=== PATIENT | female | born 1985 | race African-American/Black ===

== ENCOUNTER 2017-02-09 13:03 | Emergency (ER) | payer OTHER ==
--- NOTE | ~2017-02-09 | CR170 ---
[facility]. [facility] A Service of [facility] & [facility] RADIOLOGY TEXT RESULTS PATIENT: TIO WILLIS LOCATION: SED : 83 UNIT #: [id number] AGE: [address]: Jesus Villa MD SEX: F ORDER DR: [id number] [address] [address] [id number] E MR#: [id number] Acc #: [id number] NAME: TIO WILLIS : 1985 SEX: F STUDY DATE/TIME: 02/09/2017 14:48 UNIT: SED ROOM: STUDY DESCRIPTION: CR Knee 2 Views Rt Attending Physician: Jesus Villa M.D. Ordering Physician: Jesus Villa M.D. MEDICAL IMAGING REPORT This report is preliminary unless electronic signature is present. EXAM Right knee, 2 views. HISTORY Status post reduction of ankle fracture. FINDINGS 2 views are obtained. Bony elements are intact. No fractures are seen. No subluxation is identified. CONCLUSION Negative knee. Dictated by... Rodriguez Castro M.D. THIS IS AN ELECTRONICALLY VERIFIED REPORT Rodriguez Castro M.D. at 02/12/2017 2:44 PM RISHI/avelino TD: 02/09/2017 16:47 JOB #: [id number] MEDICAL IMAGING REPORT Page 1 of 1
--- NOTE | ~2017-02-09 | CR127 ---
[facility] A Service of [facility] & [facility] RADIOLOGY TEXT RESULTS PATIENT: TIO WILLIS LOCATION: SED : 83 UNIT #: [id number] AGE: [address]: Odessa Alvares APRN SEX: F ORDER DR: [id number] [address] [address] [id number] E MR#: [id number] Acc #: [id number] NAME: TIO WILLIS : 1985 SEX: F STUDY DATE/TIME: 02/09/2017 12:22 UNIT: SED ROOM: STUDY DESCRIPTION: CR Foot Complete Min 3 View Rt Attending Physician: Odessa Alvares A.P.R.N. Ordering Physician: Odessa Coyle A.P.R.N. MEDICAL IMAGING REPORT This report is preliminary unless electronic signature is present. EXAM Right foot 3 views, 02/09/2017 12:22 hours HISTORY 31-year-old woman fell while skating today with pain and swelling at the ankle with deformity. Foot pain. COMPARISON Ankle film today. FINDINGS AP, lateral and oblique views demonstrate no acute foot fracture or dislocation. Comminuted fracture dislocation of the ankle again noted. IMPRESSION 1. No acute foot fracture. 2. Comminuted fracture dislocation at the ankle is noted. Orthopedic consultation recommended. Dictated by... Goldie Bobby M.D. THIS IS AN ELECTRONICALLY VERIFIED REPORT Goldie Bobby M.D. at 02/09/2017 1:56 PM Cheryl TD: 02/09/2017 13:16 JOB #: [id number] MEDICAL IMAGING REPORT Page 1 of 1
--- NOTE | ~2017-02-09 | CR21 ---
[facility] A Service of [facility] & [facility] RADIOLOGY TEXT RESULTS PATIENT: TIO WILLIS LOCATION: SED : 83 UNIT #: [id number] AGE: [address]: Odessa Alvares APRN SEX: F ORDER DR: [id number] [address] [address] [id number] E MR#: [id number] Acc #: [id number] NAME: TIO WILLIS : 1985 SEX: F STUDY DATE/TIME: 02/09/2017 12:22 UNIT: SED ROOM: STUDY DESCRIPTION: CR Ankle Min 3 Views Rt Attending Physician: Odessa Alvares A.P.R.N. Ordering Physician: Odessa Coyle A.P.R.N. MEDICAL IMAGING REPORT This report is preliminary unless electronic signature is present. EXAM Right ankle 3 views 02/09/2017 1222 hours HISTORY Patient fell skating today, ankle pain and deformity. COMPARISON None. FINDINGS AP, lateral and oblique views demonstrate an acute fracture dislocation at the ankle. There is an oblique fracture of the distal fibula which spirals through the distal fibula terminating at the level of the tibiotalar articulation. The distal tip of the fibula remains articulated with the lateral talus. There is however medial displacement of the tibia by at least 1.24 cm. There is a transverse fracture of the medial malleolus through the level of the tibiotalar articulation with the distal fragment remaining articulated with the medial margin of the talus. The shaft of the tibia is displaced 1.6 cm medial to the medial margin of the distal medial malleolar fragment. There are small fragments seen at both the fibular and tibia fracture site. On the lateral view, the talus is displaced posterior to the articular surface of the tibia. A small posterior tibial fracture may be present. IMPRESSION There is a complex comminuted fracture of the ankle with a spiral comminuted fracture of the distal fibula and a transverse mildly comminuted fracture of the medial malleolus. There is disruption of the ankle mortise with tibia displaced medial to the talus and anterior to the talus. A small posterior tibial fracture may be present. This is an unstable fracture dislocation. Surgical consultation recommended. [facility] A Service of [facility] RADIOLOGY TEXT RESULTS PATIENT: TIO WILLIS LOCATION: [facility] : 83 UNIT #: [id number] AGE: [address]: Odessa Alvares APRN SEX: F ORDER DR: Dictated by... Goldie Bobby M.D. THIS IS AN ELECTRONICALLY VERIFIED REPORT Goldie Bobby M.D. at 02/09/2017 1:56 PM NONA/jevon TD: 02/09/2017 13:16 JOB #: [id number] MEDICAL IMAGING REPORT Page 1 of 1
--- NOTE | ~2017-02-09 | CR18 ---
[facility] A Service [facility] RADIOLOGY TEXT RESULTS PATIENT: TIO WILLIS LOCATION: SED : 83 UNIT #: [id number] AGE: [address]: Jesus Villa MD SEX: F ORDER DR: [id number] [address] [address] [id number] E MR#: [id number] Acc #: [id number] NAME: TIO WILLIS : 1985 SEX: F STUDY DATE/TIME: 02/09/2017 14:35 UNIT: SED ROOM: STUDY DESCRIPTION: CR Ankle 2 Views Rt Attending Physician: Jesus Villa M.D. Ordering Physician: Jesus Villa M.D. MEDICAL IMAGING REPORT This report is preliminary unless electronic signature is present. EXAM Right ankle, 2 views. HISTORY 31-year-old female with a history of complex fracture dislocation, status post reduction. COMPARISON STUDIES Comparison with earlier today. FINDINGS Postreduction radiograph demonstrates much improved anatomic alignment. There is still some minimal lateral subluxation of the talus upon the tibia. Multiple fractures are again noted. There is also a minimal amount of widening of the anterior portion of the ankle joint between the tibia and the talus. IMPRESSION Postreduction radiograph performed. Complex multiple fractures again noted, but the alignment is much improved and is nearly anatomic. Dictated by... Samuel Castle M.D. THIS IS AN ELECTRONICALLY VERIFIED REPORT Samuel Castle M.D. at 02/09/2017 5:03 PM SAGRARIO/avelino TD: 02/09/2017 16:38 [facility] A Service [facility] RADIOLOGY TEXT RESULTS PATIENT: TIO WILLIS LOCATION: SED : 83 UNIT #: [id number] AGE: [address]: Jesus Villa MD SEX: F ORDER DR: JOB #: [id number] MEDICAL IMAGING REPORT Page 1 of 1
[~2017-02-09 13:03] MED LIST: NORCO1 TAB 10/3; NORVASC; PRENATAL MULITV1 TAB; TOPROL XL
[2017-02-13] MEDS ORDERED: AMLODIPINE BESYL5 MG PO (15:57)
[2017-02-13] MEDS ORDERED: LOPRESSOR PO (15:57)
[2017-02-13] MEDS ORDERED: HYDROCODONE-APA1 T55 PO (15:58)
[2017-02-13] MEDS ORDERED: PERCOCET10 PO (15:58)
== END 2017-02-09 16:35 | disposition home or self-care (01) ==
LOC: SED 13:03
DX: S82.831A Other fracture of upper and lower end of right fibula, initial encounter for closed fracture (principal); S82.51XA Displaced fracture of medial malleolus of right tibia, initial encounter for closed fracture; I10 Essential (primary) hypertension; W19.XXXA Unspecified fall, initial encounter
CPT/HCPCS: 27808; 73560; 73600; 73610; 73630; 96361; 96374; 96375; 99284; 99291; J1170; J2250; J2405

== ENCOUNTER → 2017-02-13 | Day surgery (SDC) | payer OTHER ==
[~2017-02-13] MED LIST changes: +AMLODIPINE BESYL5 MG PO; +HYDROCODONE-APA1 T55 PO; +LOPRESSOR PO; +PERCOCET 5-3251 TAB PO; +PERCOCET10 PO
--- NOTE | ~2017-02-13 | EKG ---
PATIENT: TIO WILLIS UNIT #: [id number] Ventricular Rate: 70 BPM Atrial Rate: 70 BPM P-R Interval: 148 ms QRS Duration: 78 ms Q-T Interval: 384 ms QTC Calculation(Bezet): 414 ms P [place]: 59 degrees Calculated R [place]: -18 degrees Calculated T [place]: 5 degrees Diagnosis Line: Normal sinus rhythm Diagnosis Line: Moderate voltage criteria for LVH, may be normal Diagnosis Line: variant Diagnosis Line: Otherwise normal ECG Diagnosis Line: No previous ECGs available Diagnosis Line: Confirmed by FELIBERTO WEI MD ([id number]) on 02/14/2017 Diagnosis Line: 9:18:24 PM INTERPRETING MD: ERIBERTO COLE
[2017-02-13 16:48] LABS: BUN/CREATININE RATIO 8.75; CREATININE SERUM 0.8 mg/dL (0.6-1.4); GLOM FILT RATE Estimated 112.4 mL/min (>60); POTASSIUM 3.4 mmol/L (3.5-5.1)
== END | disposition home or self-care (01) ==
LOC: CSUR 15:22
PROVIDERS: Orthopaedic Surgery
DX: S82.851A Displaced trimalleolar fracture of right lower leg, initial encounter for closed fracture (principal); N18.6 End stage renal disease; X58.XXXA Exposure to other specified factors, initial encounter; Z53.8 Procedure and treatment not carried out for other reasons
CPT/HCPCS: 80048; 84703; 93005; J2250; J3010

== ENCOUNTER 2017-02-14 13:05 | Observation (INO) | payer OTHER ==
--- NOTE | ~2017-02-14 | CR18 ---
[facility] A Service of [facility] RADIOLOGY TEXT RESULTS PATIENT: TIO WILLIS LOCATION: [place] [address] : [birth year] UNIT #: [id number] AGE: [address]: Svetlana Ramirez MD SEX: F ORDER DR: [id number] [place] [address] [facility]. [place], [place] [address] [id number] I MR#: [id number] Acc #: [id number] NAME: TIO WILLIS : 1985 SEX: F STUDY DATE/TIME: 02/14/2017 18:19 UNIT: [facility] ROOM: [facility] STUDY DESCRIPTION: CR Ankle 2 Views Rt Attending Physician: Jannie Ramirez M.D. Ordering Physician: Aniceto Osuna M.D. Primary Care Physician: [facility] MEDICAL IMAGING REPORT This report is preliminary unless electronic signature is present EXAM Intraoperative fluoroscopic evaluation of the right ankle, 02/14/2017 COMPARISON Right ankle radiographs dated February 09, 2017. INDICATION 31-year-old female. Intraoperative evaluation for open reduction/internal fixation of right ankle fracture. FINDINGS A total of 6 images were obtained. Total fluoro time was 52 seconds. Intraoperative images demonstrate placement of a lateral fracture fixation plate at the distal fibula with interlocking cortical screws. There is also placement of 2 cortical lag screws through the medial malleolus into the distal tibia. Bone fragments appear anatomically aligned. The ankle joint appears anatomically aligned. IMPRESSION 1. Post open reduction internal fixation of distal tibial and fibular fractures as described. Formal postoperative evaluation is recommend when the patient is able. 2. The fracture fixation hardware appears intact and the bones otherwise appear anatomically aligned. Dictated by... Jerson Reeves M.D. THIS IS AN ELECTRONICALLY VERIFIED REPORT [facility] A Service [facility] & [facility] RADIOLOGY TEXT RESULTS PATIENT: TIO WILLIS LOCATION: [place] [address] : [birth year] UNIT #: [id number] AGE: [address]: Svetlana Ramirez MD SEX: F ORDER DR: Jerson Reeves M.D. at 03/05/2017 10:20 AM RADHA/wilfredo TD: 02/14/2017 23:30 JOB #: [id number] MEDICAL IMAGING REPORT Page 1 of 1 COPY
--- NOTE | ~2017-02-14 | HP ---
Unit #: [id number] #: [id number] Patient: TIO WILLIS [id number] [address] [place], [place] [address] [id number] I MR#: [id number] NAME: TIO WILLIS ROOM: 459 Age: Sex: F Admission Date: 02/14/2017 : 1985 Attending Physician: Jannie Ramirez M.D. Primary Care Physician: [facility] HISTORY AND PHYSICAL DATE OF ANTICIPATED ADMISSION/PROCEDURE February 13, 2017 CHIEF COMPLAINT Right ankle injury. HISTORY OF PRESENT ILLNESS The patient is a 31-year-old female who was roller skating at a school constitution party when she fell while roller skating on February 09, 2017, four days prior to admission. She sustained a displaced trimalleolar right ankle fracture which underwent closed reduction in the emergency room. She is now admitted for open reduction and internal fixation of this unstable displaced fracture. PAST MEDICAL HISTORY 1. Anxiety. 2. Depression. 3. Hypertension. PAST SURGICAL HISTORY 1. section. 2. Tubal ligation. HOME MEDICATIONS 1. Amlodipine. 2. Elmiron. 3. Metoprolol. 4. Mirtazapine. 5. Oxycodone. ALLERGIES None. SOCIAL HISTORY The patient is a social user of alcohol. She does not smoke. FAMILY HISTORY COPD and hypertension. REVIEW OF SYSTEMS Unremarkable. PHYSICAL EXAMINATION VITAL SIGNS: Height 5 feet 2, weight 180 pounds. BMI 32.9. Unit #: [id number] #: [id number] Patient: TIO WILLIS GENERAL: This is an obese female in no acute distress. HEENT: Pharynx is clear. NECK: Supple without masses. HEART: Regular sinus rhythm without murmurs or gallops. LUNGS: Clear. ABDOMEN: Soft and nontender without masses or organomegaly. EXTREMITIES: Evaluation of the right ankle demonstrates moderate swelling. She is immobilized in a new and posterior splint. The splint was loosened and the skin was inspected. There was no evidence of blisters or open wounds. Pulses are intact. Sensation is normal. Motor exam is grossly normal. Alignment is grossly normal. DIAGNOSTIC STUDIES IMAGING: Nonweightbearing right ankle x-rays show a supination external rotation type 4 injury with an oblique fibula fracture and transverse medial malleolar fracture, as well as a posterior malleolar fracture. There is initial lateral subluxation of the talus of about 15 mm prior to closed reduction. ADMITTING DIAGNOSIS Right trimalleolar ankle fracture. PLAN The patient is admitted for open reduction and internal fixation of this unstable displaced fracture. This procedure was described along with the risks of bleeding, infection, nerve damage, need for further surgery in the future, prolonged recovery time, deep venous thrombosis, pulmonary embolism, anesthetic complications, stiffness of the ankle, and arthritis of the ankle. She understands the above risks and agrees to proceed. Dictated by Hal Cevallos/jessica TD: 02/12/2017 18:48 JOB #: [id number] HISTORY AND PHYSICAL Page 1 of 1 X Svetlana Ramirez MD X HISTORY AND PHYSICAL
--- NOTE | ~2017-02-14 | DS ---
Unit #: [id number] #: [id number] Patient: TIO WILLIS [id number] [address] [place], [place] [address] [id number] I MR#: [id number] NAME: TIO WILLIS ROOM: 45 Age: 31 Sex: F Admission Date: 02/14/2017 : 1985 Discharge Date: 02/15/2017 Attending Physician: Jannie Ramirez M.D. Primary Care Physician: [facility]. DISCHARGE SUMMARY ADMISSION DIAGNOSIS Right trimalleolar ankle fracture. DISCHARGE DIAGNOSIS Right trimalleolar ankle fracture, status post open reduction and internal fixation. SECONDARY DIAGNOSIS Include hypertension. PROCEDURE On 02/14/2017, the patient underwent an ORIF of right trimalleolar ankle fracture. Please see the operative report for further details. BRIEF HISTORY Ms. Willis is a 31-year-old female who suffered a fall approximately 6 days ago at a school field trip. She was unable to bear weight on right lower extremity and brought into the ER where x-rays were taken. She was diagnosed with a right trimalleolar ankle fracture. This was reduced under sedation. She was placed in a splint and told to follow up in our office. Upon seeing her in the office, Dr. Ramirez explained her that she would require an ORIF of her right ankle fracture. The risks, benefits, and alternatives were discussed with the patient and she elected to proceed with surgery. HOSPITAL COURSE On the night of surgery, the patient was transferred to the orthopedic unit for postoperative care. The patient remained stable overnight. On postop day 1, the patient's vital signs remained stable. She is awake, alert, and oriented x3, in no acute distress. Her right lower extremity was in a posterior splint. The splint was clean, dry, and intact. Her toes were warm and well perfused. She was able to move all 5 digits. She has normal sensation of light touch in all 5 digits. Her hemoglobin is 12.7 and hematocrit is 40.6. She was placed in left lower extremity SCD in an effort for DVT prophylaxis. She will work with physical therapy this morning on the use of crutches. Once cleared by PT, we will plan to discharge her home. CONDITION AT DISCHARGE Stable. DISPOSITION The patient will be discharged home where she has a family to help with Unit #: [id number] #: [id number] Patient: TIO WILLIS postoperative care. DISCHARGE MEDICATIONS Include Norvasc 5 mg p.o. daily, Lopressor 50 mg p.o. daily, Percocet 5/325 mg one to two tablets p.o. q.4 hours p.r.n. dispensed #65. The patient was sent home with a script for Percocet. DISCHARGE INSTRUCTIONS The patient will follow up with Dr. Osuna in 2 weeks' time for repeat x-rays of the right ankle. She will remain nonweightbearing on the right lower extremity and a splint. She may shower, but she is not get her splint wet. She must keep occlusive dressing over the splint when showering. She was also sent home with an order for a knee scooter to be used on the right lower extremity. Dictated by... Joseline Mcintosh APRN for Hal Owens/taylor TD: 02/15/2017 22:39 JOB #: [id number] DISCHARGE SUMMARY Page 1 of 1 X JOSELINE MCINTOSH APRN X DISCHARGE SUMMARY
--- NOTE | ~2017-02-14 | OR ---
Unit #: [id number] #: [id number] Patient: TIO WILLIS [id number] [address] [address] [id number] I MR#: [id number] NAME: TIO WILLIS ROOM: 459 Date of Procedure: 02/14/2017 Admission Date: 02/14/2017 Surgeon: Aniceto Osuna M.D. : 1985 Attending Physician: Jannie Ramirez M.D. Primary Care Physician: [facility]. OPERATIVE REPORT PREOPERATIVE DIAGNOSIS Right trimalleolar ankle fracture. POSTOPERATIVE DIAGNOSIS Right trimalleolar ankle fracture. PROCEDURE PERFORMED Open reduction and internal fixation of right bimalleolar ankle fracture for treatment of trimalleolar ankle fracture. IMPLANTS 1. Arthrex 7-hole locking 1/3 semitubular plate. 2. Arthrex 4.0 mm x 45 mm cannulated screw x2. SENIOR SVP Shanice Durand APRN, RNFA. ANESTHESIA General with regional nerve block. ESTIMATED BLOOD LOSS 10 mL. COMPLICATIONS None apparent. INDICATIONS FOR PROCEDURE Ms. Willis is a 31-year-old female, who sustained an injury to her right ankle during a roller skating accident. She underwent a closed reduction in the emergency department for ankle fracture dislocation. She is placed on splint and referred for further followup. She was initially seen by Dr. Ramirez, who due to scheduling conflicts was unable to perform her surgery. The patient was then seen and evaluated in the preoperative holding area. We discussed the injury and the nature of the operation. She voiced agreement and understanding and elected to proceed. DESCRIPTION OF PROCEDURE The patient was identified in the preoperative holding area. The operative site was marked. A regional anesthetic block was performed. The patient was brought to the operating room and placed supine on the Unit #: [id number] #: [id number] Patient: TIO WILLIS operating table. A general anesthetic was induced. The right lower extremity was prepped and draped in sterile fashion after application of a thigh tourniquet. The leg was exsanguinated and tourniquet inflated. An incision was made along the lateral border of the fibula. Dissection was carried down through subcutaneous tissues to the fibula itself. There was a traumatic disruption of the deep fascia. Upon opening through the subcutaneous tissue, there was significant periosteal stripping directly down the bone. The fracture was cleaned of any hematoma and debris, then reduced with a lobster claw clamp. A lag screw was then drilled and inserted across the fracture site and provided good initial stability and compression of the fracture. A 1/3 semitubular plate of the desired size was then selected. This provided two screw fixation distally. The plate was fixed both proximally and distally with nonlocking cortical screw proximally and a cancellous screw distally. Three more nonlocking fully-threaded cortical screws were placed proximally and one locking screw distally. Attention was then turned to the medial aspect of the ankle. An incision was made over the medial malleolus and dissection carried down to the periosteum. Again, there was a traumatic disruption of the deeper fascial layers and upon entering the subcutaneous tissue, there was stripping directly down to bone from the injury itself. There was interposed periosteum of the fracture. This was removed and the fracture reduced anatomically under direct visualization. Two guide wires were placed across the fracture. Position was confirmed on orthogonal radiographic images. The outer cortex was then opened with a drill bit and two 45 mm screws were advanced across the fracture. It was sequentially tightened and provided a good compressive force across the medial malleolus. Final images were obtained and demonstrated anatomic reduction. The posterior malleolus did not require fixation. The wounds were then irrigated and closed in a layered fashion with 3-0 nylon on the skin. A well-padded posterior splint was applied. DISPOSITION Stable to the recovery room. Dictated by... Hal Owens/taylor TD: 02/15/2017 03:09 JOB #: [id number] OPERATIVE REPORT Page 1 of 1 X Aniceto Osuna MD X PROCEDURE OPERATIVE NOTE
[~2017-02-14 13:05] MED LIST changes: -PERCOCET 5-3251 TAB PO
[2017-02-15 04:42] LABS: HEMATOCRIT 40.6 % (35.0-45.0); HEMOGLOBIN 12.7 gm/dL (12.0-16.0)
[2017-02-15] MEDS ORDERED: PERCOCET 5-3251 TAB PO (11:24)
== END 2017-02-15 12:53 | disposition home or self-care (01) ==
LOC: CSUR 13:05 → CPACUOF 19:56 → C4B 22:26
PROVIDERS: Orthopaedic Surgery
PROC: 0QHJ04Z Insertion of Internal Fixation Device into Right Fibula, Open Approach (ICD-10-PCS; principal; 2017-02-14 15:00)
DX: S82.851A Displaced trimalleolar fracture of right lower leg, initial encounter for closed fracture (principal); Y93.51 Activity, roller skating (inline) and skateboarding; Y93.89 Activity, other specified; Y92.9 Unspecified place or not applicable; I10 Essential (primary) hypertension; F41.9 Anxiety disorder, unspecified; F32.9 Major depressive disorder, single episode, unspecified; Z79.899 Other long term (current) drug therapy; Z98.51 Tubal ligation status; Z82.49 Family history of ischemic heart disease and other diseases of the circulatory system; Z83.6 Family history of other diseases of the respiratory system; Z79.891 Long term (current) use of opiate analgesic
CPT/HCPCS: 73600; 76001; 85014; 85018; 96374; 96375; 96376; 97116; 97161; 97530; C1713; G0378; J0690; J1100; J1170; J2250; J2270; J2405; J2550; J2795; J3010